=== PATIENT | female | born 1990 | race African-American/Black ===

== ENCOUNTER 2016-06-09 20:09 | Emergency (ER) | payer OTHER ==
[2016-06-09 20:24] VITALS: BP 138/106; PULSE 104; TEMP 97.9; BMI 52.4
[2016-06-09] MEDS ORDERED: KETOROLAC TROMETHAMINE 60 MG/2 ML VIAL IM ONE (21:31)
[2016-06-09] MEDS ORDERED: diazePAM 5 MG TABLET PO ONE (21:32)
[2016-06-09] MEDS ORDERED: KETOROLAC TROMETHAMINE 60 MG/2 ML VIAL ONE (21:36)
[2016-06-09] MEDS ORDERED: diazePAM 5 MG TABLET ONE (21:36)
--- NOTE | 2016-06-09 21:39 | PDOC ---
History of Present Illness - General Chief Complaint: Back Pain Stated Complaint: BACK AND HIP SPASM Time Seen by Provider: 06/09/16 20:46 History Source: Patient - History of Present Illness Occurred: reports: yesterday Pain Location: reports: back Past History - Past Medical History Allergies/Adverse Reactions: Allergies Allergy/AdvReac Type Severity Reaction Status Date / Time metronidazole [From Flagyl] Allergy Severe Difficulty Verified 06/09/16 20:21 Breathing Metronidazole HCl Allergy Severe Difficulty Verified 06/09/16 20:21 [From Flagyl] Breathing oxycodone [Oxycodone] Allergy Mild Itching Verified 06/09/16 20:21 Home Medications: Ambulatory Orders Cyclobenzaprine HCl [Flexeril -] 5 mg PO TID PRN #21 tablet 03/31/16 Diazepam [Valium] 2 mg PO Q6H #10 tablet MDD 8 06/09/16 Naproxen [Naprosyn -] 500 mg PO BID PRN #14 tablet 06/09/16 - Family Disease History Family Disease History: CA: Grandparents (lung cancer), Mother (Small cell carcinoma of the lung, HTN), Other: Mother - Psycho/Social/Smoking Cessation Hx Anxiety: No Suicidal Ideation: No Smoking History: Current every day smoker Have you smoked in the past 12 months: Yes Number of Cigarettes Smoked Daily: 4 Information on smoking cessation initiated: No 'Breaking Loose' booklet given: 10/04/14 Hx Alcohol Use: No Drug/Substance Use Hx: No Substance Use Type: None Trauma Specific PMHX - Complaint Specific PMHX Arthritis: No Back Injury: Yes (work) Neck Injury: No Review of Systems - Review of Systems Constitutional: No: Chills, Fever : No: Dysuria Musculoskeletal: Yes: Back Pain *Physical Exam - Vital Signs Last Vital Signs Temp Pulse Resp BP Pulse Ox 97.9 F 104 H 18 138/106 98 06/09/16 20:21 06/09/16 20:21 06/09/16 20:21 06/09/16 20:21 06/09/16 20:21 - Physical Exam General Appearance: Yes: Appropriately Dressed. No: Apparent Distress HEENT: positive: Normal Voice Neck: positive: Supple Respiratory/Chest: negative: Respiratory Distress Gastrointestinal/Abdominal: positive: Soft. negative: Tender Musculoskeletal: positive: Vertebral Tenderness. negative: CVA Tenderness Extremity: positive: Normal Inspection Integumentary: positive: Dry, Warm Neurologic: positive: Fully Oriented, Alert, Normal Mood/Affect Medical Decision Making - Medical Decision Making 06/09/16 21:33 25-year-old female, morbid obesity, recurrent back spasms here with lower back pain radiating to left hip since yesterday, described as tight in nature, constant and worse with any movement. Taking [id number] medications with no relief. Feels like usual spasm but more severe now. No lower extremity weakness, saddle anesthesia, bowel or bladder incontinence, symptoms, nausea , vomiting, fever or chills. Pt well kenyatta and in NAD w/ ttp to lower back diffusely. No red flags at this time. Pain control in ED and reassess 06/09/16 21:40 06/09/16 22:08 Pain improved, DC with pain control and PMD follow-up *DC/Admit/Observation/Transfer Diagnosis at time of Disposition: Lower back pain Qualifiers: Chronicity: acute Back pain laterality: bilateral Sciatica presence: without sciatica Qualified Code(s): M54.5 - Low back pain - Discharge Dispostion Disposition: HOME Condition at time of disposition: Improved - Prescriptions Prescriptions: Naproxen [Naprosyn -] 500 mg PO BID PRN #14 tablet PRN Reason: Back Pain Diazepam [Valium] 2 mg PO Q6H #10 tablet MDD 8 - Patient Instructions Printed Discharge Instructions: DI for Low Back Pain Additional Instructions: Take medications as directed and follow up with your PMD
[2016-06-09 23:06] LABS: URINE APPEARANCE CLOUDY; URINE BILIRUBIN NEGATIVE (NEGATIVE); URINE COLOR RED; URINE GLUCOSE (UA) NEGATIVE (NEGATIVE); URINE KETONE NEGATIVE (NEGATIVE); URINE LEUK ESTERASE NEGATIVE (NEGATIVE); URINE NITRITE NEGATIVE (NEGATIVE); URINE UROBILINOGEN NEGATIVE E.U./dl (0.2-1.0)
[2016-06-09 23:07] LABS: URINE BLOOD 2+ (NEGATIVE); URINE PROTEIN 2+ (NEGATIVE)
[2016-06-09 23:45] LABS: URINE RBC 7463 /hpf (0-3); URINE WBC 366 /hpf (3-5)
== END 2016-06-09 22:54 | disposition home or self-care (01) ==
LOC: JERFT 20:09
PROC: 3E0233Z Introduction of Anti-inflammatory into Muscle, Percutaneous Approach (ICD-10-PCS; principal; 2016-06-09)
DX: M54.5 Low back pain (principal); M62.830 Muscle spasm of back; F17.210 Nicotine dependence, cigarettes, uncomplicated; E66.01 Morbid (severe) obesity due to excess calories; Z68.43 Body mass index [BMI] 50.0-59.9, adult
CPT/HCPCS: 81003; 81015; 84703; 96372; 99281-25

== ENCOUNTER 2017-01-09 11:32 | Emergency (ER) | payer OTHER ==
[2017-01-09 11:50] VITALS: BP 136/72; PULSE 90; TEMP 98.3; BMI 55.6
--- NOTE | 2017-01-09 12:42 | PDOC ---
History of Present Illness - General Chief Complaint: Pain Stated Complaint: PAIN, ACUTE Time Seen by Provider: 01/09/17 12:13 History Source: Patient Exam Limitations: No Limitations - History of Present Illness Initial Comments: 01/09/17 12:37 Has acute onset of back spasm 3 days. States was traveling over the weekend, but is uncertain as to any mechanism or any specific activity that caused a spasm. States pain is primarily to the right mid thoracic to waistline side of her back and different from her chronic back pain. Has taken some Tylenol with minimal resolved. Denies numbness or tingling to feet, denies any problems with bowel or bladder. Severity: reports: moderate Pain Location: reports: back Loss of Consciousness: no loss of consciousness Associated Symptoms (Fall): denies symptoms Past History - Travel Traveled outside of the country in the last 30 days: No Close contact w/someone who was outside of country & ill: No - Past Medical History Allergies/Adverse Reactions: Allergies Allergy/AdvReac Type Severity Reaction Status Date / Time metronidazole [From Flagyl] Allergy Severe Difficulty Verified 01/09/17 11:45 Breathing Metronidazole HCl Allergy Severe Difficulty Verified 01/09/17 11:45 [From Flagyl] Breathing oxycodone [Oxycodone] Allergy Mild Itching Verified 01/09/17 11:45 Home Medications: Ambulatory Orders Cyclobenzaprine HCl [Flexeril 10 mg] 10 mg PO BID PRN #14 tablet 01/09/17 Naproxen [Naprosyn -] 500 mg PO BID #14 tablet 01/09/17 - Family Disease History Family Disease History: CA: Grandparents (lung cancer), Mother (Small cell carcinoma of the lung, HTN), Other: Mother - Suicide/Smoking/Psychosocial Hx Smoking History: Current every day smoker Have you smoked in the past 12 months: Yes Number of Cigarettes Smoked Daily: 3 Information on smoking cessation initiated: No 'Breaking Loose' booklet given: 10/04/14 Hx Alcohol Use: Yes Drug/Substance Use Hx: No Substance Use Type: None Trauma Specific PMHX - Complaint Specific PMHX Arthritis: No Back Injury: Yes (work) Neck Injury: No Review of Systems - Review of Systems Able to Perform ROS?: Yes Is the patient limited Yakut proficient: Yes Constitutional: No: Symptoms Reported HEENTM: No: Symptoms Reported Respiratory: Yes: Symptoms reported, See HPI. No: Cough Cardiac (ROS): No: Symptoms Reported *Physical Exam - Vital Signs Last Vital Signs Temp Pulse Resp BP Pulse Ox 98.3 F 90 18 136/72 100 01/09/17 11:46 01/09/17 11:46 01/09/17 11:46 01/09/17 11:46 01/09/17 11:46 - Physical Exam General Appearance: Yes: Nourished, Appropriately Dressed, Apparent Distress HEENT: positive: RICH, Normal ENT Inspection, TMs Normal, Pharynx Normal Neck: positive: Tender, Supple Respiratory/Chest: positive: Lungs Clear, Normal Breath Sounds Gastrointestinal/Abdominal: positive: Soft Musculoskeletal: positive: Normal Inspection, Muscle Spasm (palpable spasm noted to the paravertebral and lower thoracic spinous muscles. Has no true bone tenderness,). negative: Vertebral Tenderness Extremity: positive: Normal Capillary Refill, Normal Range of Motion. negative : Tender Integumentary: positive: Normal Color, Dry, Warm. 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, Fully Oriented, Alert, Normal Mood/ Affect, Normal Response, Motor Strength 5/5 Progress Note - Progress Note Progress Note: Back Strain, will treat with NSAIDs and cyclobenzaprine *DC/Admit/Observation/Transfer Diagnosis at time of Disposition: Thoracic back sprain Qualifiers: Encounter type: initial encounter Qualified Code(s): S23.9XXA - Sprain of unspecified parts of thorax, initial encounter - Discharge Dispostion Disposition: HOME Condition at time of disposition: Stable Admit: No - Patient Instructions Printed Discharge Instructions: DI for Back Strain or Sprain Additional Instructions: Rest, no heavy lifting or exercise until pain is resolved Hot soaks to neck and low back as often as possible/hot showers or Jacuzzis No massage or therapy until spasm is gone Continue ibuprofen 2-200 mg tablets every 6 hours for the next 3 days then as needed for pain and swelling Cyclobenzaprine 1-10mg every 8 hours as needed for spasm If not significant improvement within 24 hours with medication and rest regime, followup with private physician for change in medications and /or therapy. - Post Discharge Activity Forms/Work/School Notes: Back to Work
[2017-01-09] MEDS ORDERED: KETOROLAC TROMETHAMINE 60 MG/2 ML VIAL ONE (12:50)
[2017-01-09] MEDS ORDERED: CYCLOBENZAPRINE HCL 10 MG TABLET (FP) ONE (12:50)
[2017-01-09] MEDS ORDERED: KETOROLAC TROMETHAMINE 60 MG/2 ML VIAL IM ONE (13:01)
[2017-01-09] MEDS ORDERED: CYCLOBENZAPRINE HCL 10 MG TABLET (FP) PO ONE (13:01)
[2017-01-09] MEDS ORDERED: predniSONE 20 MG TABLET (UD) ONE (14:00)
== END 2017-01-09 13:13 | disposition home or self-care (01) ==
LOC: JERFT 11:32
PROC: 3E0233Z Introduction of Anti-inflammatory into Muscle, Percutaneous Approach (ICD-10-PCS; principal; 2017-01-09)
DX: S23.9XXA Sprain of unspecified parts of thorax, initial encounter (principal); X58.XXXA Exposure to other specified factors, initial encounter; Y93.89 Activity, other specified; Y92.9 Unspecified place or not applicable; F17.210 Nicotine dependence, cigarettes, uncomplicated
CPT/HCPCS: 96372; 99281-25

== ENCOUNTER 2017-05-04 14:51 | Emergency (ER) | payer OTHER ==
[2017-05-04 15:46] VITALS: BMI 55.6
[2017-05-04] MEDS ORDERED: KETOROLAC TROMETHAMINE 60 MG/2 ML VIAL IM ONE (15:49)
[2017-05-04] MEDS ORDERED: diazePAM 5 MG TABLET PO ONE (15:49)
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
[2017-05-04] MEDS ORDERED: diazePAM 5 MG TABLET ONE (16:49)
[2017-05-04] MEDS ORDERED: KETOROLAC TROMETHAMINE 60 MG/2 ML VIAL ONE (16:49)
[2017-05-04] MEDS ORDERED: ACETAMINOPHEN 325 MG TABLET (FP) PO ONE (17:28)
[2017-05-04] MEDS ORDERED: ACETAMINOPHEN 325 MG TABLET (FP) ONE (17:43)
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
[2017-05-04 19:18] VITALS: BP 140/89; PULSE 94; TEMP 97
== END 2017-05-04 19:21 | disposition home or self-care (01) ==
LOC: JER 14:51
PROC: 3E0233Z Introduction of Anti-inflammatory into Muscle, Percutaneous Approach (ICD-10-PCS; principal; 2017-05-04)
DX: M62.830 Muscle spasm of back (principal); V43.62XA Car passenger injured in collision with other type car in traffic accident, initial encounter; Y92.414 Local residential or business street as the place of occurrence of the external cause; Y93.89 Activity, other specified; Y99.8 Other external cause status
CPT/HCPCS: 99282-25

== ENCOUNTER 2018-01-04 17:03 | Emergency (ER) | payer OTHER ==
--- NOTE | 2018-01-04 17:38 | PDOC ---
Rapid Medical Evaluation Time Seen by Provider: 01/04/18 17:33 Medical Evaluation: Allergies Allergy/AdvReac Type Severity Reaction Status Date / Time metronidazole [From Flagyl] Allergy Severe Difficulty Verified 05/04/17 15:46 Breathing Metronidazole HCl Allergy Severe Difficulty Verified 05/04/17 15:46 [From Flagyl] Breathing oxycodone [Oxycodone] Allergy Mild Itching Verified 05/04/17 15:46 01/04/18 17:33 Patient had a brief in-person assessment of this patient The patient presents with a chief complaint of: vaginal spotting x 6 weeks. Reports today with large clots. Complaining of feeling tired. Denies dizziness or shortness of breath Pertinent physical findings are: NAD even and unlabored breathing skin color good I have ordered the following: urine preg, urinalysis, cbc This patient will proceed to the ED for further evaluation.
[2018-01-04 17:40] VITALS: BP 158/99; PULSE 106; TEMP 98.1; BMI 53.0
--- NOTE | 2018-01-04 17:57 | PDOC ---
History of Present Illness - General Chief Complaint: Vaginal Bleeding Stated Complaint: VAGINAL BLEEDING Time Seen by Provider: 01/04/18 17:33 History Source: Patient Exam Limitations: No Limitations - History of Present Illness Initial Comments: 27 y/o female presenting to [facility] ER via private auto complaining of lower abdominal cramping and heavy vaginal bleeding since . Reports she has been passing large clots (silver dollar size). Symptoms acutely worsening two days ago. Has used 28 pads in past three days. Endorses vaginal spotting for the past six weeks. Pt has a h/o menometrorrhagia. Does not take contraceptives. Is in the process of transitioning OBGYN care. Last pap smear was three months ago at a health fair. H/o trichomonas vaginalis 9 years ago. Past History - Past Medical History Allergies/Adverse Reactions: Allergies Allergy/AdvReac Type Severity Reaction Status Date / Time Metronidazole HCl Allergy Severe Difficulty Verified 01/04/18 17:34 [From Flagyl] Breathing oxycodone [Oxycodone] Allergy Mild Itching Verified 01/04/18 17:34 Home Medications: Ambulatory Orders NK [No Known Home Medication] 01/04/18 COPD: No - Family Disease History Family Disease History: CA: Grandparents (lung cancer), Mother (Small cell carcinoma of the lung, HTN), Other: Mother - Suicide/Smoking/Psychosocial Hx Smoking History: Current every day smoker Have you smoked in the past 12 months: Yes Number of Cigarettes Smoked Daily: 3 Information on smoking cessation initiated: No 'Breaking Loose' booklet given: 10/04/14 Hx Alcohol Use: No Drug/Substance Use Hx: No Substance Use Type: None Review of Systems - Review of Systems Able to Perform ROS?: Yes Is the patient limited Guinean proficient: No Constitutional: No: Chills, Diaphoresis, Fever Respiratory: No: Shortness of Breath Cardiac (ROS): No: Chest Pain, Lightheadedness, Palpitations, Syncope ABD/GI: Yes: See HPI. No: Constipated, Diarrhea, Nausea, Vomiting : Yes: See HPI, Pain, Other (Vaginal bleeding). No: Burning, Dysuria, Discharge, Frequency Musculoskeletal: No: Back Pain Integumentary: No: Bruising, Change in Color, Rash Neurological: No: Headache, Weakness, Dizziness Hematologic/Lymphatic: No: Easy Bleeding, Easy Bruising *Physical Exam - Vital Signs Last Vital Signs Temp Pulse Resp BP Pulse Ox 98.1 F 106 H 16 158/99 99 01/04/18 17:35 01/04/18 17:35 01/04/18 17:35 01/04/18 17:35 01/04/18 17:35 - Physical Exam Comments: Constitutional: Well-developed, well-nourished, obese female in no acute distress. Found sitting upright on hospital bed. Alert and oriented x4. Answered all questions appropriately and completely. Speech was non-labored, non -pressured. HEENT: Normocephalic. No obvious external signs of trauma. Hearing grossly normal. No nasal discharge. Neck is supple, trachea is midline. Cardiovascular: Regular rate and regular rhythm. No murmur, rubs, clicks, or gallops. Peripheral pulses: Radial pulses full. Respiratory: Breathing unlabored. Equal chest rise and fall. Clear to auscultation bilaterally. No stridor, no wheezing, no rhonchi. Gastrointestinal: Exam technically limited by body habitus. Abdomen is soft and non-distended. Subjectively tender in lower right quadrant, lower left quadrant , and suprapubically; no rebound or guarding.No overlying skin lesions or obvious signs of trauma. Neuro: Alert and oriented. Moving all four extremities spontaneously. Skin: Warm, dry, and intact. Acanthosis nigricans on neck folds and facial hair on chin. : No R or L CVA tenderness. Psych: Affect: appropriate. Mood: normal. Pelvic: Normally developed external female genitalia with no external lesions or eruptions. Vagina and cervix have no lesions, inflammation, or discharge. Blood noted in vault with clot in OS. Cervix is nontender. Uterus is within normal limits with no adnexal fullness, though technically limited by body habitus. RN chaperoned exam. ED Treatment Course - LABORATORY CBC & Chemistry Diagram: 01/04/18 17:53 Medical Decision Making - Medical Decision Making *Reviewed vital signs, nursing notes, and prior visit documentation (if available). 27 y/o female complaining of pelvic pain and vaginal bleeding. H/o menometrorrhagia. Afebrile. Vitals unremarkable. Pelvic exam revealed minimal bleeding. Suspect , ectopic , uterine fibroid. Low suspicion for ovarian torsion, PID, cystitis, salpingitis, ovarian cyst. Will obtain CBC, UPreg, and UA. Physical exam also suggestive for PCOS. Discussed findings of such with pt. Suggested PCP f/u. CBC unremarkable for anemia or leukocytosis. UPreg negative. Low suspicion for ectopic or IUP. UA revealed blood and pyuria without nitrite or leukocyte esterase. Low suspicion for UTI. Transvaginal U/S: 2cm subserosal leiomyoma along uterine body ventrally. Normal endometrial stripe. Unable to visualize ovaries. Suspect fibroid versus menometrorrhagia as possible source of bleeding. Discussed imaging and laboratory results with pt. Answered all questions. Provided return precautions. Pt expressed verbal understanding and agreement with plan to discharge home with outpatient OBGYN follow up. *DC/Admit/Observation/Transfer Diagnosis at time of Disposition: Vaginal bleeding - Discharge Dispostion Disposition: HOME Condition at time of disposition: Stable Decision to Admit order: No - Referrals Referrals: Carol Kohler MD [Primary Care Provider] - - Patient Instructions Printed Discharge Instructions: DI for Uterine Fibroids, DI for Vaginal Bleeding Additional Instructions: Your blood work did not show signs of anemia. Your urine test was negative. The ultrasound showed a fibroid in your uterus. This may be causing some of the bleeding and discomfort. I have attached a copy of the ultrasound report to this packet. Please follow up with your new OBGYN within the next week. You will need to call to make an appointment. Take this packet with you to the appointment so the doctor can see the ultrasound report. You may also follow up with your primary care physician. Go to the nearest emergency department if your condition worsens or you feel like you need additional emergency evaluation. Print Language: MALTESE - Post Discharge Activity
[2018-01-04 18:00] LABS: BASO % 0.4 % (0-2.0); EOS % 1.1 % (0-4.5); HEMATOCRIT 34.5 % (32.4-45.2); LYMPH % 17.6 % (8-40); MCH 25.1 pg (25.7-33.7); MCHC 31.8 g/dl (32.0-36.0); MEAN CELL VOLUME 78.9 fl (80-96); MEAN PLT VOLUME 7.7 fl (7.5-11.1); MONO % 2.9 % (3.8-10.2); PLATELET COUNT 376 K/MM3 (134-434); RBC 4.38 M/mm3 (3.60-5.2); RDW 16.5 % (11.6-15.6); WHITE BLOOD COUNT 11.9 K/mm3 (4.0-10.0)
[2018-01-04 21:06] LABS: HCG,QUALITATIVE URINE NEGATIVE
[2018-01-04 21:09] LABS: URINE APPEARANCE CLOUDY; URINE BILIRUBIN NEGATIVE (<2.0 mg/dL); URINE COLOR RED; URINE GLUCOSE (UA) NEGATIVE (NEGATIVE); URINE KETONE NEGATIVE (NEGATIVE); URINE LEUK ESTERASE NEGATIVE (NEGATIVE); URINE NITRITE NEGATIVE (NEGATIVE); URINE UROBILINOGEN NEGATIVE mg/dL (0.2-1.0)
[2018-01-04 21:11] LABS: URINE PROTEIN 2+ (NEGATIVE)
[2018-01-04 21:13] LABS: EPI CELLS RARE /HPF (FEW); URINE MUCUS RARE
--- NOTE | 2018-01-04 21:58 | PDOC ---
Attending Attestation - Resident Resident Name: Phi Childress - ED Attending Attestation I have performed the following: I have examined & evaluated the patient, The case was reviewed & discussed with the resident, I agree w/resident's findings & plan, Exceptions are as noted - HPI HPI: 01/04/18 21:58 27 yo obese female with heavy menstrual bleeding - Medical Decision Making 01/04/18 21:58 pr is not pelvic ultrasound shows small fibroids 01/04/18 21:59 IMP fibroids plan follow up with customer resolution specialist <Maria E Pena - Last Filed: 01/04/18 21:58> - HPI HPI: 01/04/18 22:01 The patient is a 27 year old female, with a significant past medical history of back pain and HNP, who presents to the emergency department with, 6 weeks of vaginal spotting. She reports today she noted large clots and increased tiredness. Allergies: oxycodone, metronidazole Past surgical history: None reported. Social history: Smoker. Denies EtOH use and recreational drug use. Primary Care Physician: Dr. Kohler - Physicial Exam PE: 01/04/18 22:01 +GENERAL: Obese. Well-appearing, well-nourished. No apparent distress. HEENT: Normocephalic, atraumatic. PERRL, EOM intact. CARDIOVASCULAR: Normal S1, S2. Regular rate and rhythm. PULMONARY: Clear to auscultation bilaterally. ABDOMEN: Soft, non-distended, non-tender. PELVIC: Refer to resident exam. EXTREMITIES: Normal ROM in all four extremities. No gross deformities. SKIN: Warm, dry. No rash NEUROLOGICAL: No focal neurological deficits. <Godwin Young - Last Filed: 01/04/18 22:02> Attestations - Attestations 01/04/18 22:02 Documentation prepared by Godwin Young, acting as medical donation professional for Maria E Pena MD. <Godwin Young - Last Filed: 01/04/18 22:02>
== END 2018-01-04 22:41 | disposition home or self-care (01) ==
LOC: JER 17:03
DX: N93.9 Abnormal uterine and vaginal bleeding, unspecified (principal); E66.01 Morbid (severe) obesity due to excess calories; Z68.43 Body mass index [BMI] 50.0-59.9, adult; F17.210 Nicotine dependence, cigarettes, uncomplicated
CPT/HCPCS: 36415; 76830-TC; 81003; 81015; 84703; 85025; 99284-25

== ENCOUNTER 2018-02-26 01:47 | Emergency (ER) | payer OTHER ==
[2018-02-26 02:08] VITALS: BP 121/89; PULSE 98; TEMP 98.6; BMI 56.9
[2018-02-26] MEDS ORDERED: traMADol HCL 50 MG TABLET PO ONE (02:58)
[2018-02-26] MEDS ORDERED: traMADol HCL 50 MG TABLET ONE (03:03)
--- NOTE | 2018-02-26 03:04 | PDOC ---
History of Present Illness - General Chief Complaint: Toothache Stated Complaint: TOOTHACHE,EARACHE Time Seen by Provider: 02/26/18 02:28 History Source: Patient Exam Limitations: No Limitations - History of Present Illness Initial Comments: 27 y/o F hx of herniated disc presents with L lower toothache x 3 weeks, worsening today. States her wisdom teeth are coming out and causing her discomfort. States she has been taking Motrin 800 mg without much relief of pain. Tried making an appointment with her dentist but states the earliest available date wasn't until March. Denies fever, chills, sob, cp, abd pain, n /v, difficulty swallowing. 02/26/18 03:02 Past History - Past Medical History Allergies/Adverse Reactions: Allergies Allergy/AdvReac Type Severity Reaction Status Date / Time Metronidazole HCl Allergy Severe Difficulty Verified 02/26/18 02:07 [From Flagyl] Breathing oxycodone [Oxycodone] Allergy Mild Itching Verified 02/26/18 02:07 Home Medications: Ambulatory Orders Tramadol HCl 50 mg PO TID PRN #12 tablet MDD 3 02/26/18 Anemia: No Asthma: No Cancer: No Cardiac Disorders: No CVA: No COPD: No CHF: No Dementia: No Diabetes: No GI Disorders: No Disorders: No HTN: No Hypercholesterolemia: No Liver Disease: No Seizures: No Thyroid Disease: No - Family Disease History Family Disease History: CA: Grandparents (lung cancer), Mother (Small cell carcinoma of the lung, HTN), Other: Mother - Reproductive History (#): 0 Para: 0 - Suicide/Smoking/Psychosocial Hx Smoking History: Never smoked Have you smoked in the past 12 months: No Number of Cigarettes Smoked Daily: 3 Information on smoking cessation initiated: No 'Breaking Loose' booklet given: 02/24/18 Hx Alcohol Use: No Drug/Substance Use Hx: No Substance Use Type: Alcohol Hx Substance Use Treatment: No Review of Systems - Review of Systems Comments:: See HPI 02/26/18 03:09 *Physical Exam - Vital Signs Last Vital Signs Temp Pulse Resp BP Pulse Ox 98.6 F 98 H 20 121/89 100 02/26/18 02:07 02/26/18 02:07 02/26/18 02:07 02/26/18 02:07 02/26/18 02:07 - Physical Exam General Appearance: No: Apparent Distress HEENT: positive: Other (+Impacted tooth #17, no swelling of gums, no evidence of dental abscess) Neck: positive: Supple Medical Decision Making - Medical Decision Making 27 y/o F with dental pain from erupting L lower wisdom tooth. There is no evidence of infection on PE. Given patient has already tried Motrin without relief, will give patient Tramadol instead. Will refer patient to [facility]. 02/26/18 03:13 *DC/Admit/Observation/Transfer Diagnosis at time of Disposition: Impacted third molar tooth - Discharge Dispostion Disposition: HOME Condition at time of disposition: Stable - Prescriptions Prescriptions: Tramadol HCl 50 mg PO TID PRN #12 tablet MDD 3 PRN Reason: Pain - Referrals Referrals: [facility] [Other] - 3 days - Patient Instructions Printed Discharge Instructions: DI for Impacted Tooth, DI for Dental Pain Additional Instructions: Thank you for choosing [facility]. It was a pleasure taking care of you. You were seen here for tooth pain from erupting wisdom tooth You were given Tramadol to take as needed for severe pain. This medication can make you constipated for which you may take over the counter Senna tablets as needed. This medication can also make you drowsy so please be cautious with driving or performing heavy physical work. You can also take Motrin 800 mg every 8 hours as needed for mild to moderate pain. Take medication with food. Please follow-up in [facility] for further care. Return to the Emergency Department if your symptoms worsen or persist, you have fever, swelling, pustular discharge, drooling, unable to swallow or other concerning symptoms. - Post Discharge Activity
--- NOTE | 2018-02-26 03:06 | PDOC ---
*Physical Exam - Vital Signs Last Vital Signs Temp Pulse Resp BP Pulse Ox 98.6 F 98 H 20 121/89 100 02/26/18 02:07 02/26/18 02:07 02/26/18 02:07 02/26/18 02:07 02/26/18 02:07 - Physical Exam Comments: 02/26/18 03:04 Afebrile Morbidly obese, but comfortable appearing and speaking full sentences Airway patent, no stridor Bilateral lower wisdom teeth impacted, no gingival induration or fluctuance Neurologically intact Medical Decision Making - Medical Decision Making 02/26/18 03:05 27-year-old female presents with subacute and progressive bilateral wisdom tooth pain from impaction, has appointment with dentist but not for another month so she presents for pain control after ibuprofen stopped controlling her pain. No fevers or chills, no airway compromise, no other complications. Tramadol for pain Dental referral to [facility] Understands return criteria *DC/Admit/Observation/Transfer Diagnosis at time of Disposition: Impacted third molar tooth - Discharge Dispostion Disposition: HOME Condition at time of disposition: Stable - Referrals Referrals: Carol Kohler MD [Primary Care Provider] - - Patient Instructions - Post Discharge Activity
== END 2018-02-26 03:58 | disposition home or self-care (01) ==
LOC: JER 01:47
DX: K01.1 Impacted teeth (principal)
CPT/HCPCS: 99281-25

== ENCOUNTER 2018-03-01 13:49 | Emergency (ER) | payer OTHER ==
[2018-03-01 14:29] VITALS: PULSE 90; TEMP 98.4; BMI 55.3
[2018-03-01] MEDS ORDERED: ACETAMINOPHEN 500 MG TABLET (FP) PO ONE (14:41)
[2018-03-01] MEDS ORDERED: ACETAMINOPHEN 500 MG TABLET (FP) ONE (14:45)
--- NOTE | 2018-03-01 14:48 | PDOC ---
History of Present Illness - General Chief Complaint: Toothache Stated Complaint: TOOTHACHE Time Seen by Provider: 03/01/18 14:36 History Source: Patient Exam Limitations: No Limitations - History of Present Illness Initial Comments: 03/01/18 14:42 pt had tooth extracted 2 days ago at [facility] dental clinic, c/o pain to left ear. pt took ibuprofen with mild relief. pt on amoxicillin 875mg bid for 2 days. no fever , pt also with stuffy nose. 03/01/18 14:45 Past History - Past Medical History Allergies/Adverse Reactions: Allergies Allergy/AdvReac Type Severity Reaction Status Date / Time Metronidazole HCl Allergy Severe Difficulty Verified 03/01/18 14:26 [From Flagyl] Breathing oxycodone [Oxycodone] Allergy Mild Itching Verified 03/01/18 14:26 Home Medications: Ambulatory Orders Ibuprofen 800 mg PO BID PRN 02/26/18 Fluticasone Prop 0.05% Nasal [Flonase -] 1 - 2 spray NS BID #1 spray.pump Anemia: No Asthma: No Cancer: No Cardiac Disorders: No CVA: No COPD: No CHF: No Dementia: No Diabetes: No GI Disorders: No Disorders: No HTN: No Hypercholesterolemia: No Liver Disease: No Seizures: No Thyroid Disease: No - Family Disease History Family Disease History: CA: Grandparents (lung cancer), Mother (Small cell carcinoma of the lung, HTN), Other: Mother - Reproductive History (#): 0 Para: 0 - Suicide/Smoking/Psychosocial Hx Smoking History: Unknown if ever smoked Have you smoked in the past 12 months: No Number of Cigarettes Smoked Daily: 3 'Breaking Loose' booklet given: 02/24/18 Hx Alcohol Use: No Drug/Substance Use Hx: No Substance Use Type: Alcohol Hx Substance Use Treatment: No *Physical Exam - Vital Signs Last Vital Signs Temp Pulse Resp BP Pulse Ox 98.4 F 90 22 H 141/111 H 03/01/18 14:27 03/01/18 14:27 03/01/18 14:27 03/01/18 14:27 - Physical Exam General Appearance: Yes: Nourished, Appropriately Dressed, Obese HEENT: positive: EOMI, RICH, Nasal Congestion, TM Dull (fluid left TM ), Other ( no abscess to the upper left gum line s/p extraction tooth 16) Neck: negative: Tender Respiratory/Chest: positive: Lungs Clear, Normal Breath Sounds. negative: Chest Tender Cardiovascular: positive: Regular Rhythm, Regular Rate Musculoskeletal: positive: Normal Inspection Extremity: positive: Normal Capillary Refill, Normal Inspection, Normal Range of Motion Medical Decision Making - Medical Decision Making 03/01/18 14:47 cc: ear pain left side s/p tooth #16 extraction 2 days ago has continued pain to left ear stuffy nose no sore throat, pt states pain in tooth has improved will give tylenol flonase nasal spray neg dizzyness neg chest pain neg photophobia pt is known to have HTN is not on any meds I have discussed pt must see here PMD this week as her blood pressure is elevated and puts her at risk for stroke, heart attack , disability or pt states her BP has been high this week due to her pain she saw her prop drawer and the BP was same pt aware to see her PMD when she is feeling better 03/01/18 14:54 03/01/18 14:58 *DC/Admit/Observation/Transfer Diagnosis at time of Disposition: Nasal congestion - Discharge Dispostion Disposition: HOME Condition at time of disposition: Good - Prescriptions Prescriptions: Fluticasone Prop 0.05% Nasal [Flonase -] 1 - 2 spray NS BID #1 spray.pump - Referrals Referrals: Carol Kohler MD [Staff Physician] - [facility] [Outside] - Patient Instructions Additional Instructions: use the flonase as directed follow up with [facility] or at [facility] tomorrow to make appointment take tylenol 650mg every 4=6hrs for pain use the flonase nasal spray follow up with your primary care doctor for repeat blood pressure check - Post Discharge Activity
[2018-03-01 14:56] VITALS: BP 157/107
== END 2018-03-01 15:23 | disposition home or self-care (01) ==
LOC: JERFT 13:49
DX: R09.81 Nasal congestion (principal); I10 Essential (primary) hypertension; K08.109 Complete loss of teeth, unspecified cause, unspecified class
CPT/HCPCS: 99281-25

== ENCOUNTER 2018-05-12 05:23 | Day surgery (SDC) | payer OTHER ==
[2018-05-11 16:13] VITALS: BMI 56.4
[2018-05-12] MEDS ORDERED: ACETAMINOPHEN 325 MG TABLET (FP) PO PRN (10:11)
[2018-05-12] MEDS ORDERED: IBUPROFEN 800 MG/8 ML IJ IVPB PRN (10:11)
--- NOTE | 2018-05-12 10:11 | HP ---
History & Physical Update - History History: No Change - Physical Physical: No Change - Assessment Assessment: No Change - Plan Plan: No Change (Agree with H&P from 05/11/18, for hysteroscopic polypectomy, D& C for polyps/AUB)
[2018-05-12] MEDS ORDERED: LACTATED RINGERS SOLUTION 1,000 ML IV SCH ×2 (10:15→14:30)
[2018-05-12] MEDS ORDERED: ONDANSETRON 4 MG/2 ML VIAL IVPUSH PRN (14:16)
[2018-05-12] MEDS ORDERED: ACETAMINOPHEN 1000 MG/100 ML VIAL (NON FORMULARY) IVPB ONE (14:16)
--- NOTE | 2018-05-12 15:01 | OP ---
Operative Note - Note: Operative Date: 05/12/18 Pre-Operative Diagnosis: endometrial polyps Operation: hysterosopcy, D&C, polypectomy Findings: uterine polyps Post-Operative Diagnosis: Same as Pre-op Anesthesiologist/MACHINE SETUP OPERATOR: Rodrick Lange Anesthesia: General Specimens Removed: endometrial polyps, EMC Estimated Blood Loss (mls): 5 Operative Report Dictated: Yes
[2018-05-12 15:18] VITALS: TEMP 97.8
[2018-05-12 16:40] VITALS: BP 160/87; PULSE 90
--- NOTE | 2018-05-14 10:02 | OP ---
DATE OF OPERATION: 05/18/2018 PREOPERATIVE DIAGNOSIS: Abnormal uterine bleeding and endometrial polyp. POSTOPERATIVE DIAGNOSIS: Abnormal uterine bleeding and endometrial polyp. SURGERY: Hysteroscopic polypectomy, suction dilatation and curettage. SURGEON: Macy Forte MD ANESTHESIA: General. ANESTHESIOLOGIST: Steven. Anisa MD COMPLICATIONS: None. SPECIMENS: Endometrial polyps and endometrial curettings. ESTIMATED BLOOD LOSS: 5 mL. COUNTS: Sponge and instrument counts correct. DISPOSITION: Stable to PACU. BRIEF HISTORY AND PROCEDURE: Patient is a 27-year-old female who had been seen in the office with complaints of abnormal uterine bleeding, and on ultrasound examination was fund to have endometrial polyps. The patient was counseled on her options and elected to undergo hysteroscopic resections of these polyps. Consents for the procedure were signed in the office. She was then admitted to [facility] on May 12, 2018, where the consents were reconfirmed upon admission. She was taken back to the operating room, placed in the dorsal lithotomy position, and given general anesthesia by Dr. Rodrick Lange. A hard time-out was performed, and then, the patient was prepped and draped in the usual sterile fashion. A speculum was placed inside the vagina. The anterior lip of the cervix was grasped with a tenaculum, and the cervix was dilated to accommodate a diagnostic hysteroscope, which was advanced to the fundus of the uterus. Bilateral tubal ostia were noted. Multiple uterine polypoid tissue and fundal endometrial polyp was appreciated. At this time, a suction dilatation and curettage was performed. Sharp dilatation and curettage was performed in all 4 scherer of the uterus, and uterine polyp forceps was used to remove the endometrial polyps. One final pass with the suction dilatation and curettage was performed to remove the detached tissue, and a final look with the camera revealed no evidence of uterine perforation. All instruments were removed from the vagina. Specimens were sent to Pathology for permanent evaluation. Minimal bleeding was noted from the cervix and the tenaculum site. All instruments were removed from the surgical field. Sponge, needle, and instrument counts were reported to be correct. Patient tolerated the procedure well and was recovering in stable condition in the PACU after the procedure. MACY FORTE DO /[id number]
--- NOTE | 2018-05-14 20:51 | PATH ---
Surgical Pathology Report Patient Name: DIAZ FARAH [facility]. Rec. #: [id number] /Age/Gender: 1990 (Age: 27) / F Account: [id number] Location: [facility] SURGICAL Taken: 05/12/2018 Received: 05/13/2018 Reported: 05/14/2018 Physicians: Macy Forte M.D. Specimen(s) Received ENDOMETRIAL CURETTINGS AND POLYP Clinical History Fibroids Final Diagnosis ENDOMETRIAL CURETTINGS AND POLYP, SUCTION DILATION AND CURETTAGE: POLYPOID FRAGMENT OF SECRETORY ENDOMETRIUM AND BENIGN CERVICAL TISSUE. Electronically Signed Elham Godinez M.D. Gross Description Received in formalin labeled "endometrial curettings and polyp," is a 4.5 x 4.0 x 0.4 cm aggregate of mcadams-brown soft tissue fragments. The formalin is filtered and the specimen is entirely submitted in 3 cassettes. DL/05/13/2018 saudi05/13/2018
== END 2018-05-12 16:50 | disposition home or self-care (01) ==
LOC: JASU-SURG 05:23 → EDSEX 12:30 → JASU-SURG 16:50
PROVIDERS: ATTEND Obstetrics & Gynecology
PROC: 0UJD8ZZ Inspection of Uterus and Cervix, Via Natural or Artificial Opening Endoscopic (ICD-10-PCS; 2018-05-12)
PROC: 0UB97ZX Excision of Uterus, Via Natural or Artificial Opening, Diagnostic (ICD-10-PCS; principal; 2018-05-12 12:30)
PROC: 0UDB7ZX Extraction of Endometrium, Via Natural or Artificial Opening, Diagnostic (ICD-10-PCS; 2018-05-12 12:30)
DX: N93.9 Abnormal uterine and vaginal bleeding, unspecified (principal); N84.0 Polyp of corpus uteri
CPT/HCPCS: 88305-TC; 94760; J0131